=== PATIENT | male | born 1975 | race Caucasian/White ===

== ENCOUNTER 2016-11-20 22:26 | Emergency (ER) | payer SELFPAY ==
--- NOTE | 2016-11-20 23:10 | ERNOTE ---
Lower Extremity HPI - General Lower Extremities Pain: 5th toe: right - stepped on by horse Time Seen by Provider: 11/20/16 22:58 Source: patient Exam Limitations: no limitations - Immun/Allergies/Home Medications Immunizations: IMMUNIZATION HX Immunizations Up to Date Yes History of Influenza Vaccine No Hx Pneumococcal Vaccination No Allergies/Adverse Reactions: Allergies Allergy/AdvReac Type Severity Reaction Status Date / Time No Known Allergies Allergy Verified 11/20/16 22:40 Home Medications: HOME MEDICATIONS NK [No Home Medication] 11/20/16 [Last Taken Unknown] - History of Present Illness Narrative: Pt states he was working with a horse when it stepped on his foot. His small toe began swelling immediately and turned purple. He is having trouble walking on it. Occurred: just prior to arrival Location of Incident: park Review of Systems - Review of Systems Constitutional: Absent: recent illness Musculoskeletal: Present: See HPI, joint pain, joint swelling. Absent: back pain Skin: Present: change in color Neurological: Present: tingling - of the toe and side of foot Endocrine: Present: no symptoms reported Hematologic/Lymphatic: Present: no symptoms reported Psych: Present: no symptoms reported - Patient's Past Medical History Patient History - Medical: No pertinent hx Patient History - Cardiac/Respiratory: No pertinent hx Patient History - Cancer: No Hx of Cancer Patient History - Surgical Procedures: Other Patient History - Other: None - Social History Living Situations: home Psych History: No pertinent hx Smoking Status: Current some day smoker - Immunizations Immunizations Up to Date: Yes Hx Pneumococcal Vaccination: No History of Influenza Vaccine: No Physical Exam - Physical Exam General Appearance: Present: wd/wn, alert, no apparent distress Head Exam: Present: normal inspection, no evidence of injury Eye Exam: Normal inspection: bilateral Neck: Present: normal inspection, supple, full range of motion Respiratory: Present: no respiratory distress, no accessory muscle use Peripheral Pulses: N=norm/S=strong/W=weak/B=bound/A=absent: Dorsalis-pedis (R): Normal Extremity Exam: Present: decreased range of motion - right foot and small toe, joint swelling - right little toe Neurological Exam: Present: alert, oriented, normal mood/affect, no motor/ sensory deficits Skin Exam: Present: other - bruising right little toe and distal lateral foot ED Progress - Vital Signs Vital Signs: Vital Signs 11/20/16 11/20/16 22:37 23:08 Temperature 36.8 C 36.7 C Pulse Rate 88 84 Respiratory 17 16 Rate Blood Pressure 147/94 139/72 O2 Sat by Pulse 95 98 Oximetry - X-Ray X-Ray #1 X-Ray: foot Interpretation: Interp. by me X-ray Comments: no fracture or dislocation. STS noted on 5th toe and lateral foot - Progress/Reassessment Chief Complaint: Lower Extremity Pain/ Injury Departure Clinical Impression: Contusion Qualifiers: Encounter type: initial encounter Contusion area: toe Toe: lesser toe Damage to nail status: without damage Laterality: right Qualified Code(s): S90.121A - Contusion of right lesser toe(s) without damage to nail, initial encounter - Departure Disposition: Home self-care Condition: Good Instructions: Foot Contusion, [id number]
[2016-11-21 00:07] VITALS: BP 140/80
== END 2016-11-20 23:35 | disposition home or self-care (01) ==
LOC: ER 22:26
DX: S90.121A Contusion of right lesser toe(s) without damage to nail, initial encounter (principal); X58.XXXA Exposure to other specified factors, initial encounter; Y93.K9 Activity, other involving animal care; Y92.830 Public park as the place of occurrence of the external cause